=== PATIENT | male | born 1980 | race Caucasian/White ===

== ENCOUNTER 2017-08-23 21:01 | Emergency (ER) | payer OTHER ==
[~2017-08-23] VITALS: Ht 175.3 cm; Wt 73.8 kg
[2017-08-23] MEDS ORDERED: NARCAN4 MG NS (22:29)
[2017-08-23 23:23] VITALS: BP 121/80
== END 2017-08-23 23:24 | disposition home or self-care (01) ==
LOC: EME → EDBD 21:01 → EME 21:01
DX: T40.1X1A Poisoning by heroin, accidental (unintentional), initial encounter (principal); F17.200 Nicotine dependence, unspecified, uncomplicated
CPT/HCPCS: 99281; 99284; J2310